=== PATIENT | female | born 1990 | race Caucasian/White ===

== ENCOUNTER 2020-02-01 20:30 | Inpatient (IN) | payer OTHER ==
[2020-02-01] MEDS ORDERED: ELECTROLYTE-148 SOLN 1,000 ML IV SCH (21:30)
[2020-02-01] MEDS ORDERED: OXYTOCIN 30 UNITS in 0.9% NS 30 UNIT/500 ML INFUS.BAG IVPB SCH (21:30)
[2020-02-01 21:49] VITALS: BMI 22.3
[2020-02-01 21:59] LABS: BASO % 0.7 % (0-2.0); EOS % 0.5 % (0-4.5); HEMATOCRIT 37.7 % (32.4-45.2); HEMOGLOBIN 12.8 GM/dL (10.7-15.3); LYMPH % 28.8 % (8-40); MCH 31.8 pg (25.7-33.7); MEAN CELL VOLUME 93.8 fl (80-96); MEAN PLT VOLUME 11.8 fl (7.5-11.1); MONO % 6.2 % (3.8-10.2); NEUT % 63.8 % (42.8-82.8); RBC 4.03 M/mm3 (3.60-5.2); RDW 13.9 % (11.6-15.6); WHITE BLOOD COUNT 6.6 K/mm3 (4.0-10.0)
[2020-02-01 22:24] LABS: BLOOD UREA NITROGEN 9.6 mg/dL (7-18); CALCIUM 8.9 mg/dL (8.5-10.1); CREATININE 0.7 mg/dL (0.55-1.3); POTASSIUM 4.2 mmol/L (3.5-5.1)
[2020-02-01 23:04] LABS: PLATELET COUNT 136 K/MM3 (134-434)
[2020-02-02] MEDS ORDERED: FENTANYL/BUPIVACAINE/NS/PF - PCEA - 50 ML DISP.SYRIN EP ONE (01:17)
[2020-02-02] MEDS ORDERED: NALOXONE HCL 0.4 MG/ML VIAL IVPUSH PRN (02:06)
[2020-02-02] MEDS ORDERED: FENTANYL/BUPIVACAINE/NS/PF - PCEA - 50 ML DISP.SYRIN EP SCH ×2 (02:15→05:31)
[2020-02-02] MEDS ORDERED: OXYTOCIN 20 UNITS in 0.9% NS 20 UNIT/1,000 ML INFUS.BAG IV ONE ×2 (04:46→10:06)
[2020-02-02] MEDS ORDERED: WITCH HAZEL 50% (TUCKS) 40 PAD/JAR PAD TP PRN (05:06)
[2020-02-02] MEDS ORDERED: BISACODYL 10 MG SUPP.RECT RC PRN (05:06)
[2020-02-02] MEDS ORDERED: BENZOCAINE 28 GM HEMORRHOIDAL OINTMENT TP PRN (05:06)
[2020-02-02] MEDS ORDERED: METHYLERGONOVINE MALEATE 0.2 MG/1 ML AMP IM PRN (05:06)
[2020-02-02] MEDS ORDERED: BENZOCAINE 20% 57 GM BOTTLE TP PRN (05:06)
[2020-02-02] MEDS ORDERED: OXYTOCIN 20 UNITS in 0.9% NS 20 UNIT/1,000 ML INFUS.BAG IV SCH (05:15)
[2020-02-02] MEDS ORDERED: ACETAMINOPHEN 325 MG TABLET (FP) ONE (08:00)
[2020-02-02] MEDS ORDERED: IBUPROFEN 600 MG TABLET (FP) PO ONE (08:00)
[2020-02-02] MEDS: IBUPROFEN 600 MG TABLET (FP) PO PRN (08:05)
[2020-02-02] MEDS: ACETAMINOPHEN 325 MG TABLET (FP) PO PRN (08:05)
[2020-02-02] MEDS: PRENATAL VITAMINS W/ FOLIC ACID TABLET (FP) PO SCH (10:00)
[2020-02-02] MEDS ORDERED: PCA PUMP NR ONE (11:43)
[2020-02-02 12:07] LABS: INR 0.86 (0.83-1.09); PROTHROMBIN TIME (PATIENT) 10.1 SEC (9.7-13.0)
[2020-02-03] MEDS: IBUPROFEN 600 MG TABLET (FP) PO PRN ×2 (05:37→08:44)
[2020-02-03] MEDS: ACETAMINOPHEN 325 MG TABLET (FP) PO PRN ×2 (05:38→08:45)
[2020-02-03 09:07] VITALS: PULSE 72; TEMP 98.2
[2020-02-03] MEDS ORDERED: ACETAMINOPHEN 325 MG TABLET (FP) PO PRN (09:17)
[2020-02-03] MEDS: PRENATAL VITAMINS W/ FOLIC ACID TABLET (FP) PO SCH (09:22)
[2020-02-03 10:02] LABS: BASO % 0.5 % (0-2.0); EOS % 0.7 % (0-4.5); HEMATOCRIT 35.1 % (32.4-45.2); HEMOGLOBIN 11.9 GM/dL (10.7-15.3); LYMPH % 15.8 % (8-40); MCH 32.2 pg (25.7-33.7); MCHC 33.8 g/dl (32.0-36.0); MEAN CELL VOLUME 95.3 fl (80-96); MEAN PLT VOLUME 10.8 fl (7.5-11.1); MONO % 5.7 % (3.8-10.2); NEUT % 77.3 % (42.8-82.8); PLATELET COUNT 130 K/MM3 (134-434); RBC 3.68 M/mm3 (3.60-5.2); RDW 14.6 % (11.6-15.6); WHITE BLOOD COUNT 10.2 K/mm3 (4.0-10.0)
[2020-02-03 13:49] VITALS: BP 99/57
[2020-02-03] MEDS ORDERED: SENNOSIDES/DOCUSATE COMBO (SENNA PLUS) TABLET (UD) PO PRN (22:00)
== END 2020-02-03 13:50 | disposition home or self-care (01) | DRG 560 ==
LOC: JLDR 20:30 → J3N 02-02 10:43
PROVIDERS: ADMIT Obstetrics & Gynecology; ATTEND Obstetrics & Gynecology
PROC: 10E0XZZ Delivery of Products of Conception, External Approach (ICD-10-PCS; principal; 2020-02-02)
PROC: 0HQ9XZZ Repair Perineum Skin, External Approach (ICD-10-PCS; 2020-02-02)
PROC: 0W8NXZZ Division of Female Perineum, External Approach (ICD-10-PCS; 2020-02-02)
DX: O70.0 First degree perineal laceration during delivery (principal); Z3A.38 38 weeks gestation of pregnancy; O26.62 Liver and biliary tract disorders in childbirth; K83.1 Obstruction of bile duct; Z37.0 Single live birth
CPT/HCPCS: 36415; 59409; 80048; 85025; 85610; 85730; 86780; 86850; 86900; 86901; U0003

== ENCOUNTER 2021-04-11 08:15 | Inpatient (IN) | payer OTHER ==
[2021-04-11] MEDS ORDERED: BUTORPHANOL TARTRATE 1 MG/ML VIAL ONE (09:05)
[2021-04-11] MEDS ORDERED: PROMETHAZINE HCL 25 MG/1 ML VIAL ONE (09:05)
[2021-04-11 09:38] VITALS: BMI 25.4
[2021-04-11] MEDS ORDERED: PROMETHAZINE HCL 25 MG/1 ML VIAL IVPB ONE (09:45)
[2021-04-11] MEDS ORDERED: BUTORPHANOL TARTRATE 2 MG/ML VIAL IVPB ONE (09:45)
[2021-04-11] MEDS ORDERED: DEXTROSE 5%-LACTATED RINGERS 1,000 ML IV SCH (09:45)
[2021-04-11 10:15] LABS: BASO % 0.6 % (0-2.0); EOS % 0.7 % (0-4.5); HEMATOCRIT 34.7 % (32.4-45.2); HEMOGLOBIN 12.2 GM/dL (10.7-15.3); LYMPH % 14.5 % (8-40); MCH 31.9 pg (25.7-33.7); MCHC 35.1 g/dl (32.0-36.0); MEAN PLT VOLUME 9.4 fl (7.5-11.1); MONO % 4.9 % (3.8-10.2); NEUT % 79.3 % (42.8-82.8); PLATELET COUNT 175 10^3/uL (134-434); RBC 3.82 M/mm3 (3.60-5.2); RDW 14.4 % (11.6-15.6); WHITE BLOOD COUNT 7.3 K/mm3 (4.0-10.0)
[2021-04-11 10:23] LABS: INR 0.92 (0.83-1.09); PROTHROMBIN TIME (PATIENT) 11.4 SEC (9.7-13.0)
[2021-04-11 10:26] LABS: ACTIVATED PTT 25.1 SECONDS (25.2-36.5)
[2021-04-11 10:45] LABS: CREATININE 0.5 mg/dL (0.55-1.3)
[2021-04-11 10:46] LABS: BLOOD UREA NITROGEN 5.7 mg/dL (7-18); CALCIUM 8.5 mg/dL (8.5-10.1)
[2021-04-11] MEDS ORDERED: OXYTOCIN 20 UNITS in 0.9% NS 20 UNIT/1,000 ML INFUS.BAG IV ONE (11:58)
[2021-04-11] MEDS ORDERED: BENZOCAINE 28 GM HEMORRHOIDAL OINTMENT TP PRN (12:49)
[2021-04-11] MEDS ORDERED: METHYLERGONOVINE MALEATE 0.2 MG/1 ML AMP IM PRN (12:49)
[2021-04-11] MEDS ORDERED: BISACODYL 10 MG SUPP.RECT RC PRN (12:49)
[2021-04-11] MEDS ORDERED: BENZOCAINE 20% 57 GM BOTTLE TP PRN (12:49)
[2021-04-11] MEDS ORDERED: WITCH HAZEL 50% (TUCKS) 40 PAD/JAR PAD TP PRN (12:49)
[2021-04-11] MEDS ORDERED: OXYTOCIN 20 UNITS in 0.9% NS 20 UNIT/1,000 ML INFUS.BAG IV SCH (13:00)
[2021-04-11] MEDS: IBUPROFEN 600 MG TABLET (FP) PO PRN ×2 (13:09→21:39)
[2021-04-11 13:17] LABS: CORD BASE EXCESS -1.1 mmol/L (0-2); CORD HCO3 25.9 mmHg (20-29); CORD PCO2 53.1 mmHg (30-78); CORD pH 7.306 (7.14-7.44)
[2021-04-11 13:20] LABS: CORD HCO3 27.5 mmHg (20-29); CORD PCO2 72.4 mmHg (30-78); CORD pH 7.198 (7.14-7.44)
[2021-04-11] MEDS: FERROUS SO4 325 MG TABLET (FP) PO SCH (18:17)
[2021-04-11] MEDS: ACETAMINOPHEN 325 MG TABLET (FP) PO PRN (21:39)
[2021-04-12] MEDS: IBUPROFEN 600 MG TABLET (FP) PO PRN ×2 (08:32→20:43)
[2021-04-12] MEDS: FERROUS SO4 325 MG TABLET (FP) PO SCH ×2 (08:32→17:01)
[2021-04-12] MEDS: PRENATAL VITAMINS W/ FOLIC ACID TABLET (FP) PO SCH (09:11)
[2021-04-12 10:32] LABS: BASO % 0.4 % (0-2.0); EOS % 0.8 % (0-4.5); HEMATOCRIT 35.6 % (32.4-45.2); HEMOGLOBIN 12.6 GM/dL (10.7-15.3); LYMPH % 13.3 % (8-40); MCH 32.6 pg (25.7-33.7); MCHC 35.5 g/dl (32.0-36.0); MEAN CELL VOLUME 91.9 fl (80-96); MEAN PLT VOLUME 9.7 fl (7.5-11.1); MONO % 4.8 % (3.8-10.2); NEUT % 80.7 % (42.8-82.8); PLATELET COUNT 192 10^3/uL (134-434); RBC 3.88 M/mm3 (3.60-5.2); RDW 14.5 % (11.6-15.6); WHITE BLOOD COUNT 9.3 K/mm3 (4.0-10.0)
[2021-04-12] MEDS ORDERED: SENNOSIDES/DOCUSATE COMBO (SENNA PLUS) TABLET (UD) PO PRN (22:00)
[2021-04-13] MEDS: FERROUS SO4 325 MG TABLET (FP) PO SCH (10:29)
[2021-04-13] MEDS: PRENATAL VITAMINS W/ FOLIC ACID TABLET (FP) PO SCH (10:29)
[2021-04-13 10:37] VITALS: BP 103/74; PULSE 76; TEMP 98
[2021-04-13] MEDS: ACETAMINOPHEN 325 MG TABLET (FP) PO PRN (11:47)
== END 2021-04-13 13:50 | disposition home or self-care (01) | DRG 560 ==
LOC: JLDR 08:15 → J3W 13:40
PROVIDERS: ADMIT Obstetrics & Gynecology; ATTEND Obstetrics & Gynecology
PROC: 10E0XZZ Delivery of Products of Conception, External Approach (ICD-10-PCS; principal; 2021-04-11)
DX: O80 Encounter for full-term uncomplicated delivery (principal); Z3A.37 37 weeks gestation of pregnancy; Z37.0 Single live birth
CPT/HCPCS: 36415; 36600; 59409; 71046-TC-FY; 80048; 82803; 85025; 85610; 85730; 86780; 86850; 86900; 86901; C9803; U0003; U0005